=== PATIENT | female | born 1985 | race Caucasian/White ===

== ENCOUNTER 2021-06-14 18:12 | Emergency (ER) | payer MEDICAID ==
[~2021-06-14] VITALS: Ht 157.5 cm; Wt 61.4 kg
[~2021-06-14 18:12] MED LIST: ATEN-169 PO; ESOM40CA PO
[2021-06-14 18:47] VITALS: BP 142/95
== END 2021-06-14 23:59 | disposition left against medical advice (07) ==
LOC: ER 18:13
DX: R22.0 Localized swelling, mass and lump, head (principal); Z53.21 Procedure and treatment not carried out due to patient leaving prior to being seen by health care provider